=== PATIENT | female | born 1995 | race Two or more races ===

== ENCOUNTER 2016-11-10 13:23 | Emergency (ER) | payer OTHER ==
[~2016-11-10] VITALS: Ht 172.7 cm; Wt 65.8 kg
[2016-11-10 13:35] VITALS: BP 119/74
[2016-11-10] MEDS ORDERED: IBUP400T18 PO (13:42)
--- NOTE | 2016-11-10 13:42 | PHYS DOC ---
Past History Past Medical History: No Pertinent History Past Surgical History: No Surgical History Alcohol Use: None Drug Use: None Adult General Chief Complaint Chief Complaint: UPPER EXTREMITY PAIN HPI HPI 21-year-old female presenting to the emergency department with right elbow pain after playing basketball around 9:30 AM. She reports possibly hyperextending her arm and has pain in her right elbow that is sharp moderate intermittent worse with movement of the elbow and without alleviating factors. Review of systems is negative for numbness tingling weakness. Negative for chest pain. All other review of systems is negative unless otherwise noted in history of present illness. ED course: 21-year-old female presenting to the emergency department with right elbow pain while playing basketball. X-rays were obtained. test ordered. The patient was placed in a sling for comfort and I recommended ibuprofen for pain control to follow up with her doctor in the next 2-3 days. The patient was then discharged home in stable condition to follow up with their primary care physician over the next 2-3 days. They were to return if their symptoms worsened or if they were concerned for any reason. [id number] discharge instructions and return precautions were given. Patient's questions were answered to their satisfaction. Patient is comfortable plan. Review of Systems Review of Systems SEE ABOVE. Physical Exam Physical Exam Constitutional: Well developed, well nourished, no acute distress, non-toxic appearance. [] HENT: Normocephalic, atraumatic, bilateral external ears normal, oropharynx moist, no oral exudates, nose normal. [] Eyes: PERRLA, EOMI, conjunctiva normal, no discharge. [] Neck: Normal range of motion, no tenderness, supple, no stridor. [] Cardiovascular:Heart rate regular rhythm, no murmur [] Lungs & Thorax: Bilateral breath sounds clear to auscultation [] Abdomen: Bowel sounds normal, soft, no tenderness, no masses, no pulsatile masses. [] Skin: Warm, dry, no erythema, no rash. [] Back: No tenderness, no CVA tenderness. [] Extremities: No tenderness, no cyanosis, no clubbing, ROM intact, no edema. [] The patient's right elbow is nonswollen without ecchymosis. Skin is intact. Moderate to mild pain to palpation of the volar aspect of the forearm proximal to the elbow. Nontender bony prominences. Neurovascularly intact distally. 2 second cap refill. Neurologic: Alert and oriented X 3, normal motor function, normal sensory function, no focal deficits noted. [] Psychologic: Affect normal, judgement normal, mood normal. [] EKG EKG [] Radiology/Procedures Radiology/Procedures [] Course & Med Decision Making Course & Med Decision Making Pertinent Labs and Imaging studies reviewed. (See chart for details) [] Dragon Disclaimer Dragon Disclaimer This chart was dictated in whole or in part using Voice Recognition software in a busy, high-work load, and often noisy Emergency Department environment. It may contain unintended and wholly unrecognized errors or omissions. Departure Departure: Impression: Primary Impression: Right elbow pain Disposition: HOME, SELF-CARE Condition: STABLE Referrals: [facility] (PCP) Patient Instructions: Elbow Injury Additional Instructions: Thank you for allowing us to participate in your care today. Followup with your primary care physician in 3 days if your symptoms do not improve. Call your Primary Doctor tomorrow and inform them of your visit today. If you do not have a primary care provider you can ask for a list of our primary care providers. Return to the emergency department you have any new or concerning findings. This should be evaluated by the primary care physician and any necessary consulting services for continued management within a few days after discharge. Return to emergency room if you have any new or concerning symptoms including but not limited to fever, chills, nausea, vomiting, intractable pain, any new rashes, chest pain, shortness of air, uncontrolled bleeding, difficulty breathing, and/or vision loss. Scripts Ibuprofen (IBUPROFEN) 400 Mg Tablet 1 TAB PO PRN Q8HRS Y for PAIN, #20 TAB Prov: PAPITO CHAMBERS MD 11/10/16 PAPITO CHAMBERS MD Nov 10, 2016 13:42
--- NOTE | 2016-11-10 14:06 | RAD ---
Right elbow, 3 views, 11/10/2016: History: Elbow injury, pain No fracture or dislocation is identified. There is no radiographic evidence of a joint effusion. IMPRESSION: No acute right elbow abnormality is detected.
== END 2016-11-10 14:10 | disposition home or self-care (01) ==
LOC: ER 13:23
DX: M25.521 Pain in right elbow (principal); X58.XXXA Exposure to other specified factors, initial encounter; Y93.67 Activity, basketball; Y92.89 Other specified places as the place of occurrence of the external cause; Y99.8 Other external cause status
CPT/HCPCS: 73080; 81025; 99284